=== PATIENT | female | born 1985 | race Caucasian/White ===

== ENCOUNTER 2021-11-21 13:47 | Emergency (ER) | payer OTHER ==
[2021-11-21] MEDS ORDERED: Zofran 4 MG/2 ML VIAL ONE (13:54)
[2021-11-21] MEDS ORDERED: Sodium Chloride 0.9% 1000 ML 1,000 ML ONE (13:54)
[2021-11-21] MEDS ORDERED: Heparin 5000 UNITS/0.5 ML (HIGH RISK MED) ONE (14:00)
--- NOTE | 2021-11-21 14:00 | ERPHSYRPT ---
- History of Present Illness Time Seen by Provider: 11/21/21 13:53 Historian: patient, EMS Exam Limitations: clinical condition Physician History: This is a 36-year-old obese white female who has no documented cardiac history and presents with chest pain that began yesterday evening and persisted through the night and into the morning. Her pain is now worse. With the pain radiating into her left neck and left back. It is sharp. Patient received aspirin and 1 nitroglycerin sublingually. Timing/Duration: yesterday Activities at Onset: none Quality: sharpness, stabbing Location: substernal, central Chest Pain Radiation: neck (Left side), back (Left side) Severity of Pain-Max: moderate Severity of Pain-Current: moderate Associated Symptoms: denies symptoms Nitro Today/Relief: 0.4 mg x 1, provided by EMS Aspirin Treatment Today: 81 mg x 4, provided by EMS Allergies/Adverse Reactions: bee venom protein (honey bee) Allergy (Verified 11/21/21 13:50) sulfamethoxazole [From Bactrim] Allergy (Verified 11/21/21 13:50) trimethoprim [From Bactrim] Allergy (Verified 11/21/21 13:50) Travel Risk - International Travel Have you traveled outside of the country in past 3 weeks: No - Coronavirus Screening Are you exhibiting any of the following symptoms?: No Close contact with a COVID-19 positive Pt in past 14-21 Days: No - Review of Systems Constitutional: No Symptoms Eyes: No Symptoms Ears, Nose, & Throat: No Symptoms Respiratory: No Symptoms Cardiac: Chest Pain Abdominal/Gastrointestinal: No Symptoms Genitourinary Symptoms: No Symptoms Musculoskeletal: No Symptoms Neurological: No Symptoms Psychological: No Symptoms Endocrine: No Symptoms Hematologic/Lymphatic: No Symptoms Immunological/Allergic: No Symptoms All Other Systems: Reviewed and Negative - Past Medical History Pertinent Past Medical History: Yes Cardiac History: Hypertension - Past Surgical History Past Surgical History: Yes - Physical Exam General Appearance: moderate distress, alert, anxiety, obese Eye Exam: PERRL/EOMI, eyes nml inspection Ears, Nose, Throat Exam: normal ENT inspection, moist mucous membranes Neck Exam: normal inspection, non-tender, supple, full range of motion Respiratory Exam: normal breath sounds, chest tenderness, lungs clear, No respiratory distress Cardiovascular Exam: tachycardia Gastrointestinal/Abdomen Exam: soft, normal bowel sounds, No tenderness Pelvic Exam: not done Rectal Exam: not done Back Exam: normal inspection, normal range of motion, No CVA tenderness Extremity Exam: normal inspection, normal range of motion, pelvis stable Neurologic Exam: alert, oriented x 3, cooperative, 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 I spoke with Dr. Quispe who is emergency department physician at [facility] in [facility]. I reviewed the patient history, clinical findings and EKG findings. He accepts the patient in transfer. Blood Culture(s) Obtained: No Antibiotics given: No Counseled pt/family regarding: diagnosis - Departure Departure Disposition: Transfer Clinical Impression: STEMI (ST elevation myocardial infarction) Condition: Fair Critical Care Time: Yes Critical Care Time(excluding separately billable procedures): Critical 30-74 mins (30 minutes)
[2021-11-21] MEDS ORDERED: MORPHINE SULFATE 2 MG INJ IV ONE (14:04)
[2021-11-21] MEDS ORDERED: Heparin 5000 UNITS/0.5 ML (HIGH RISK MED) IV ONE (14:04)
[2021-11-21] MEDS ORDERED: MORPHINE SULFATE 4 MG INJ IV ONE (14:04)
[2021-11-21] MEDS ORDERED: Sodium Chloride 0.9% 1000 ML 1,000 ML IV STA (14:04)
[2021-11-21] MEDS ORDERED: MORPHINE SULFATE 2 MG INJ ONE (14:05)
[2021-11-21 14:20] LABS: Absolute Neutrophil Ct (ANC) 13.75 x10^3/uL (1.4-6.9); Basophil (Absolute #) 0.06 x10^3/uL (0-0.4); Eosinophil (Absolute #) 0.17 x10^3/uL (0-0.5); Hematocrit 37.9 % (35-47); Hemoglobin 12.3 g/dL (12.0-16.0); Lymphocyte (Absolute #) 2.81 x10^3/uL (1.0-4.6); Lymphocytes % 15.8 % (24.0-44.0); Mean Cell Volume 85.6 fL (78-100); Mean Corpuscular Hemoglobin 27.8 pg (26-32); Mean Corpuscular Hgb Concent. 32.5 g/dL (32-36); Mean Platelet Volume 10.3 fL (7.5-11.0); Monocyte (Absolute #) 0.91 x10^3/uL (0.0-1.3); Monocytes % 5.1 % (0.0-12.0); Neutrophil % 77.5 % (36.0-66.0); Platelet Count 358 x10^3/uL (150-450); Red Blood Count 4.43 x10^6/uL (4.1-5.4); Red Cell Distribution Width 12.3 % (11.5-14.0); White Blood Count 17.8 x10^3/uL (4.0-10.5)
[2021-11-21 14:37] VITALS: BP 106/83; PULSE 100; O2SAT 97
[2021-11-21 14:45] LABS: ALBUMIN 3.9 g/dL (3.5-5.0); ANION GAP 18.4 MEQ/L (5-15); BILIRUBIN,TOTAL 0.6 mg/dL (0.2-1.3); Calcium 8.9 mg/dL (8.4-10.2); Creatinine 1 1.55 mg/dL (0.52-1.04); EST GLOMERULAR FILTRATION RATE 40.2 ML/MIN; Potassium 4.6 mmol/L (3.5-5.1); Total Protein 7.9 g/dL (6.3-8.2)
[2021-11-21] MEDS ORDERED: Zofran 4 MG/2 ML VIAL IV ONE (14:57)
== END 2021-11-21 15:11 | disposition short-term general hospital (02) ==
LOC: ED 13:47
DX: I21.3 ST elevation (STEMI) myocardial infarction of unspecified site (principal); R07.9 Chest pain, unspecified
CPT/HCPCS: 36000; 36415; 80053; 83880; 84484; 84703; 85025; 85379; 93005; 94760; 96374; 96375; 99285; J1644; J2270; J2405